=== PATIENT | male | born 1960 | race Caucasian/White ===

== ENCOUNTER 2018-03-23 08:44 | Inpatient (IN) | payer MEDICARE, MEDICAID ==
[~2018-03-23] VITALS: Ht 160 cm; Wt 51.1 kg
[2018-03-23 09:26] LABS: EOSINOPHILS # (AUTO) 0.1 X10'3 (0-0.9); EOSINOPHILS % (AUTO) 1.1 % (0-6); HEMATOCRIT 44.1 % (42.0-52.0); HEMOGLOBIN 14.7 g/dl (14.0-17.9); LYMPHOCYTES % (AUTO) 24.3 % (21-51); MEAN CORPUSCULAR HEMOGLOBIN 34.8 PG (27.0-31.0); MEAN CORPUSCULAR HGB CONC 33.3 % (33.0-36.5); MEAN CORPUSCULAR VOLUME 104.4 FL (78-98); MEAN PLATELET VOLUME 8.7 FL (7.4-10.4); MONOCYTES # (AUTO) 0.7 X10'3 (0-0.9); MONOCYTES % (AUTO) 8.1 % (2-12); NEUTROPHILS # (AUTO) 5.4 X10'3 (1.8-7.7); NEUTROPHILS % (AUTO) 65.5 % (42-75); PLATELET COUNT 235 X10'3 (140-440); RED BLOOD COUNT 4.23 X10'6 (4.70-6.10); RED CELL DISTRIBUTION WIDTH 13.9 % (11.5-14.5); WHITE BLOOD COUNT 8.3 X10'3 (4.5-11.0)
[2018-03-23 09:27] LABS: BASOPHILS # (AUTO) 0.1 X10'3 (0-0.2)
[2018-03-23 09:28] LABS: PARTIAL THROMBOPLASTIN TIME 27 SECONDS (22-32); PROTHROMBIN TIME 10.1 SECONDS (9.0-12.0)
[2018-03-23 09:32] LABS: ALANINE AMINOTRANSFERASE 23 U/L (12-78); ALBUMIN 2.6 G/DL (3.4-5.0); ALBUMIN/GLOBULIN RATIO 0.6 (1.1-1.5); ALKALINE PHOSPHATASE 79 IU/L (46-116); ANION GAP 5 (8-16); ASPARTATE AMINO TRANSFERASE 23 U/L (10-37); BILIRUBIN,TOTAL 0.4 MG/DL (0.1-1.0); BLOOD UREA NITROGEN 25 MG/DL (7-18); BUN/CREATININE RATIO 26.6 (5.4-32.0); CALCIUM 8.1 MG/DL (8.5-10.1); CHLORIDE 105 MMOL/L (99-107); CREATININE 0.94 MG/DL (0.60-1.10); GLUCOSE 98 MG/DL (70-104); POTASSIUM 4.2 MMOL/L (3.5-5.1); SODIUM 141 MMOL/L (135-145); TOTAL CARBON DIOXIDE 30.6 MMOL/L (24-32); TOTAL PROTEIN 7.1 G/DL (6.4-8.2); eGFR 82 ML/MIN
[2018-03-23] MEDS ORDERED: AZIT200S2 PO (09:48)
[2018-03-23] MEDS ORDERED: normal saline 1000ML IV soln IVB ONE ×2 (09:55→11:40)
[2018-03-23] MEDS ORDERED: ipratropium/albuterol 3ml nebule NEB ONE (10:40)
[2018-03-23] MEDS ORDERED: CefTRIAXone/D5W-Rocephin 1gm 50 ML IV ONE (12:40)
[2018-03-23] MEDS ORDERED: clindamycin 600mg/D5W 50ml 50 ML IV ONE (12:40)
[2018-03-23] MEDS ORDERED: LORazepam 2 mg/ml vial IV ONE (13:10)
[2018-03-23] MEDS ORDERED: RISP1TAB72 PO (13:44)
[2018-03-23] MEDS ORDERED: SYN0.088T PO (13:45)
[2018-03-23] MEDS ORDERED: ALLER CLEAR PO (13:46)
[2018-03-23] MEDS ORDERED: FINA5TAB11 PO (13:47)
[2018-03-23] MEDS ORDERED: FLO0.4C PO (13:47)
[2018-03-23] MEDS ORDERED: FLUT16SP2 BOTHNARES (13:49)
[2018-03-23] MEDS ORDERED: potassium Cl 40MEQ/NS 500ml 500 ML IV PRN ×2 (13:50)
[2018-03-23] MEDS ORDERED: magnesium 4gm in 100ml NS 100 ML IV PRN (13:50)
[2018-03-23] MEDS ORDERED: MULT-38 PO (13:50)
[2018-03-23] MEDS ORDERED: bisacodyl 10mg suppository rectal RC PRN (13:50)
[2018-03-23] MEDS ORDERED: ondansetron/PF 4mg/2ml inj IV PRN (13:50)
[2018-03-23] MEDS ORDERED: magnesium 1gm/100ml D5W IVPB 100 ML IV PRN (13:50)
[2018-03-23] MEDS ORDERED: potassium Cl 20 mEq SR tablet PO PRN ×2 (13:50)
[2018-03-23] MEDS ORDERED: acetaminophen 325mg tablet PO PRN (13:50)
[2018-03-23] MEDS ORDERED: magnesium hydroxide 30ml (MOM) UD suspension PO PRN (13:50)
[2018-03-23] MEDS ORDERED: mag hydrox/Alum hydrox/simeth 30ml oral suspension PO PRN (13:50)
[2018-03-23] MEDS ORDERED: magnesium Cl slow-release 64mg tablet PO PRN (13:50)
[2018-03-23] MEDS ORDERED: DOCU100C41 PO (13:51)
[2018-03-23] MEDS ORDERED: MAGN400O6 PO (13:52)
[2018-03-23] MEDS ORDERED: PSYL1PAC9 PO (13:53)
[2018-03-23] MEDS ORDERED: CLOT15CR73 TP (13:54)
[2018-03-23] MEDS ORDERED: TOLN30CR (13:55)
[2018-03-23] MEDS ORDERED: SELE207S7 (13:56)
[2018-03-23] MEDS ORDERED: PSEU30CA2 PO (13:58)
[2018-03-23] MEDS: levoFLOXACIN-Levaquin 750MG/D5 150 ML IV SCH (14:51)
[2018-03-23 16:30] VITALS: BP 107/72
[2018-03-23] MEDS: metroNIDAZOLE-Flagyl 500mg/NS 100 ML IV SCH (16:56)
[2018-03-23] MEDS: potassium Cl 20mEq in NS 1,000 ML IV SCH (17:01)
[2018-03-23 20:00] VITALS: BP 110/77
[2018-03-24] MEDS: potassium Cl 20mEq in NS 1,000 ML IV SCH ×2 (00:14→09:50)
[2018-03-24] MEDS: metroNIDAZOLE-Flagyl 500mg/NS 100 ML IV SCH ×3 (00:14→16:25)
[2018-03-24 00:25] VITALS: BP 107/79
[2018-03-24 05:59] LABS: BASOPHILS % (AUTO) 0.8 % (0-1); EOSINOPHILS # (AUTO) 0.1 X10'3 (0-0.9); EOSINOPHILS % (AUTO) 1.2 % (0-6); HEMATOCRIT 39.5 % (42.0-52.0); HEMOGLOBIN 13.4 g/dl (14.0-17.9); LYMPHOCYTES # (AUTO) 1.6 X10'3 (1.1-4.8); LYMPHOCYTES % (AUTO) 25.7 % (21-51); MEAN CORPUSCULAR HEMOGLOBIN 35.1 PG (27.0-31.0); MEAN PLATELET VOLUME 8.9 FL (7.4-10.4); MONOCYTES # (AUTO) 0.6 X10'3 (0-0.9); MONOCYTES % (AUTO) 9.5 % (2-12); NEUTROPHILS % (AUTO) 62.8 % (42-75); PLATELET COUNT 190 X10'3 (140-440); RED BLOOD COUNT 3.83 X10'6 (4.70-6.10); RED CELL DISTRIBUTION WIDTH 14.4 % (11.5-14.5); WHITE BLOOD COUNT 6.4 X10'3 (4.5-11.0)
[2018-03-24 06:15] LABS: ALANINE AMINOTRANSFERASE 19 U/L (12-78); ALBUMIN 2.1 G/DL (3.4-5.0); ALBUMIN/GLOBULIN RATIO 0.5 (1.1-1.5); ALKALINE PHOSPHATASE 68 IU/L (46-116); ANION GAP 5 (8-16); ASPARTATE AMINO TRANSFERASE 22 U/L (10-37); BILIRUBIN,TOTAL 0.4 MG/DL (0.1-1.0); BLOOD UREA NITROGEN 15 MG/DL (7-18); BUN/CREATININE RATIO 16.7 (5.4-32.0); CALCIUM 7.5 MG/DL (8.5-10.1); CHLORIDE 107 MMOL/L (99-107); GLUCOSE 84 MG/DL (70-104); MAGNESIUM 2.1 MG/DL (1.5-2.4); POTASSIUM 4.3 MMOL/L (3.5-5.1); SODIUM 139 MMOL/L (135-145); TOTAL CARBON DIOXIDE 26.7 MMOL/L (24-32); TOTAL PROTEIN 6.1 G/DL (6.4-8.2); eGFR 87 ML/MIN
[2018-03-24 07:00] VITALS: BP 116/73
[2018-03-24] MEDS: enoxaparin 40mg/0.4ml syringe SUBCUT SCH (07:58)
[2018-03-24] MEDS: K and/or MAG REPLACEMENT MC SCH (08:00)
[2018-03-24] MEDS: levoFLOXACIN-Levaquin 750MG/D5 150 ML IV SCH (09:32)
[2018-03-24 11:00] VITALS: BP 101/71
[2018-03-24] MEDS ORDERED: vancomycin/NS 1 GM ADD-VANTAGE 250 ML IV SCH (13:00)
[2018-03-24] MEDS: dextrose 5%-normal saline 1,000 ML IV SCH (13:06)
[2018-03-24] MEDS ORDERED: LORazepam 2 mg/ml vial IV PRN (13:10)
[2018-03-24] MEDS ORDERED: levoTHYROXINE sod inj. 100mcg/5 ml vial IM SCH (13:10)
[2018-03-24] MEDS ORDERED: vancomycin/NS 1 GM ADD-VANTAGE 250 ML IV ONE (13:10)
[2018-03-24] MEDS ORDERED: levoTHYROXINE sod inj. 100mcg/5 ml vial IV SCH (13:13)
[2018-03-24 14:36] VITALS: BP 129/72
[2018-03-24] MEDS: VANCOMYCIN 750MG IV in NS 250 ML IV SCH (17:35)
[2018-03-24 20:00] VITALS: BP 132/77
[2018-03-25] VITALS: BP 136/94
[2018-03-25] MEDS: metroNIDAZOLE-Flagyl 500mg/NS 100 ML IV SCH ×2 (00:09→07:29)
[2018-03-25] MEDS ORDERED: VANCOMYCIN 750MG IV in NS 250 ML IV SCH (01:00)
[2018-03-25] MEDS ORDERED: VANCOMYCIN LEVEL IV ONE (04:30)
[2018-03-25] MEDS: VANCOMYCIN 750MG IV in NS 250 ML IV SCH (05:15)
[2018-03-25 06:06] LABS: ALANINE AMINOTRANSFERASE 19 U/L (12-78); ALBUMIN 2.3 G/DL (3.4-5.0); ALBUMIN/GLOBULIN RATIO 0.6 (1.1-1.5); ALKALINE PHOSPHATASE 63 IU/L (46-116); ANION GAP 7 (8-16); ASPARTATE AMINO TRANSFERASE 29 U/L (10-37); BILIRUBIN,TOTAL 0.6 MG/DL (0.1-1.0); BLOOD UREA NITROGEN 13 MG/DL (7-18); CALCIUM 7.8 MG/DL (8.5-10.1); CHLORIDE 106 MMOL/L (99-107); CREATININE 0.93 MG/DL (0.60-1.10); GLUCOSE 90 MG/DL (70-104); MAGNESIUM 1.8 MG/DL (1.5-2.4); POTASSIUM 3.7 MMOL/L (3.5-5.1); SODIUM 140 MMOL/L (135-145); TOTAL CARBON DIOXIDE 26.9 MMOL/L (24-32); TOTAL PROTEIN 6.2 G/DL (6.4-8.2); eGFR 83 ML/MIN
[2018-03-25 06:15] LABS: BASOPHILS % (AUTO) 0.5 % (0-1); EOSINOPHILS # (AUTO) 0.1 X10'3 (0-0.9); EOSINOPHILS % (AUTO) 1.6 % (0-6); HEMATOCRIT 36.8 % (42.0-52.0); HEMOGLOBIN 13.1 g/dl (14.0-17.9); LYMPHOCYTES # (AUTO) 1.6 X10'3 (1.1-4.8); LYMPHOCYTES % (AUTO) 31.6 % (21-51); MEAN CORPUSCULAR HEMOGLOBIN 35.5 PG (27.0-31.0); MEAN CORPUSCULAR HGB CONC 35.6 % (33.0-36.5); MEAN CORPUSCULAR VOLUME 99.8 FL (78-98); MEAN PLATELET VOLUME 9.1 FL (7.4-10.4); MONOCYTES # (AUTO) 0.6 X10'3 (0-0.9); MONOCYTES % (AUTO) 11.4 % (2-12); NEUTROPHILS # (AUTO) 2.7 X10'3 (1.8-7.7); NEUTROPHILS % (AUTO) 54.9 % (42-75); PLATELET COUNT 197 X10'3 (140-440); RED BLOOD COUNT 3.69 X10'6 (4.70-6.10)
[2018-03-25 08:00] VITALS: BP 122/86
[2018-03-25] MEDS: K and/or MAG REPLACEMENT MC SCH (08:00)
[2018-03-25] MEDS: levoFLOXACIN-Levaquin 750MG/D5 150 ML IV SCH (08:47)
[2018-03-25] MEDS: enoxaparin 40mg/0.4ml syringe SUBCUT SCH (08:52)
[2018-03-25] MEDS: dextrose 5%-normal saline 1,000 ML IV SCH (09:00)
[2018-03-25 11:58] VITALS: BP 121/72
[2018-03-25 12:28] VITALS: BP 146/83
[2018-03-25] MEDS ORDERED: LEVO750T46 PO (14:51)
[2018-03-25] MEDS ORDERED: METR500T4 PO (14:51)
[2018-03-25 15:33] VITALS: BP 139/86
[2018-03-25] MEDS ORDERED: metroNIDAZOLE 500mg tablet PO SCH (16:00)
[2018-03-26] MEDS ORDERED: VANCOMYCIN LEVEL IV ONE (04:30)
[2018-03-26] MEDS ORDERED: levoTHYROXINE 25mcg tablet PO SCH (07:00)
[2018-03-26] MEDS ORDERED: levoFLOXACIN 750MG TABLET PO SCH (11:00)
== END 2018-03-25 17:39 | disposition home health service (06) | DRG 189 ==
LOC: ER 08:45 → ED HOLD 13:50 → SUR 3N 15:57
PROVIDERS: ADMIT Internal Medicine; ATTEND Internal Medicine
DX: J96.00 Acute respiratory failure, unspecified whether with hypoxia or hypercapnia (principal); J69.0 Pneumonitis due to inhalation of food and vomit; N40.0 Benign prostatic hyperplasia without lower urinary tract symptoms; E03.9 Hypothyroidism, unspecified; F41.9 Anxiety disorder, unspecified; R62.50 Unspecified lack of expected normal physiological development in childhood; Q90.9 Down syndrome, unspecified; Z88.5 Allergy status to narcotic agent; Z88.2 Allergy status to sulfonamides; Z88.8 Allergy status to other drugs, medicaments and biological substances
CPT/HCPCS: 36415; 71045; 71250; 80053; 83605; 83735; 84443; 85025; 85610; 85730; 87040; 87070; 87077; 87186; 92616; 94640; 94760; 96361; 96374; 96375; 97116; 97161; 99285; J0696; J1650; J1956; J2060; J3370; J3490; J7030; J7042